=== PATIENT | female | born 1940 | race Caucasian/White ===

== ENCOUNTER 2016-11-17 22:38 | Emergency (ER) | payer OTHER, MEDICARE ==
[~2016-11-17] VITALS: Ht 154.9 cm; Wt 66.2 kg
--- NOTE | ~2016-11-17 | EKG ---
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 : 1940 Requested By: Angel Beckford Order Number: [id number] MD: Triston Brandon Measurements Intervals [place] Rate: 80 P: 73 AR: 197 QRS: -37 QRSD: 110 T: 46 QT: 410 QTc: 473 Interpretive Statements Sinus rhythm Incomplete left bundle branch block Anterior Q waves, possibly due to ILBBB Compared to ECG 04/14/2016 07:42:48 Left bundle-branch block now present Q waves now present Poor R-wave progression no longer present Intraventricular conduction delay no longer present Electronically Signed On 11-18-2016 14:05:02 CDT by Triston Brandon [email or web address] <ELECTRONICALLY SIGNED> By: Triston Brandon MD 11/18/16 1405 40 40 Triston Brandon MD /EPI
[~2016-11-17 22:38] MED LIST: ARTHRITIS PAIN650 M3 PO; ASPIRIN EC325 M1 PO; ATORVASTATIN CA40 MG PO; CALCIUM; ELIQUIS5 MG PO; IMDUR 30 MG TAB30 M1 PO; K-DUR 20 MEQ T20 MEQ PO; LASIX 40 MG TAB40 MG PO; NORVASC10 MG PO; PRILOSEC 20 MG20 MG PO; SIMVASTATIN20 MG PO; SORINE 80 MG TA80 M1 PO; TOPROL XL100 MG PO; VITAMIN D31000 UNI2 PO
[2016-11-17] MEDS ORDERED: ZARAH TABLET1 EACH PO (22:50)
[2016-11-17 23:01] LABS: HEMATOCRIT 33.5 % (37.0-47.0); HEMOGLOBIN 11.4 gm/dL (12.0-15.0); MCH 31.1 pg (26.0-34.0); MCHC 34.1 g/dL (28.0-37.0); MCV 91.3 fL (80.0-100.0); PLATELET COUNT 310 thou/uL (150-400); RBC 3.67 mil/uL (4.20-5.00); RDW 12.5 % (10.5-14.5); WBC 8.3 thou/uL (4.0-11.0)
[2016-11-17 23:07] LABS: MANUAL DIFF YES
[2016-11-17 23:12] LABS: ANION GAP 7 mmol/L (7-16); BUN 19 mg/dL (7-18); CALCIUM 9.8 mg/dL (8.5-10.1); CHLORIDE 100 mmol/L (98-107); CO2 29 mmol/L (21-32); CREATININE 1.3 mg/dL (0.6-1.0); GLUCOSE 122 mg/dL (74-106); POTASSIUM 4.1 mmol/L (3.5-5.1); SODIUM 136 mmol/L (136-145)
[2016-11-17 23:15] LABS: APTT 31.5 Seconds (24.5-32.8); INR 1.1; PROTIME 11.3 Seconds (9.3-11.4)
[2016-11-17 23:21] LABS: ALBUMIN 3.7 g/dL (3.4-5.0); ALKALINE PHOSPHATASE 108 U/L (46-116); MAGNESIUM 2.3 mg/dL (1.8-2.4); SGOT 30 U/L (15-37); SGPT 17 U/L (30-65); TOTAL BILIRUBIN 0.3 mg/dL (<0.1-1.0); TOTAL PROTEIN 7.4 g/dL (6.4-8.2); TROPONIN-I < 0.04 ng/mL (<0.04-0.07)
[2016-11-17 23:37] LABS: PLATELET ESTIMATE NORMAL; TOTAL CELL COUNT 100
== END 2016-11-17 23:56 | disposition home or self-care (01) ==
LOC: ER 22:38
PROVIDERS: Emergency Medicine
DX: I47.1 Supraventricular tachycardia (principal); J84.10 Pulmonary fibrosis, unspecified; I10 Essential (primary) hypertension; I48.91 Unspecified atrial fibrillation; Z95.5 Presence of coronary angioplasty implant and graft; Z95.4 Presence of other heart-valve replacement; Z98.890 Other specified postprocedural states; Z87.891 Personal history of nicotine dependence; Z88.1 Allergy status to other antibiotic agents; Z88.2 Allergy status to sulfonamides; Z88.6 Allergy status to analgesic agent

== ENCOUNTER 2017-06-14 19:50 | Emergency (ER) | payer OTHER, MEDICARE ==
[~2017-06-14] VITALS: Ht 152.4 cm; Wt 60.3 kg
--- NOTE | ~2017-06-14 | EKG ---
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
[~2017-06-14 19:50] MED LIST changes: +ZARAH TABLET1 EACH PO
[2017-06-14] MEDS ORDERED: XARELTO20 MG PO (20:07)
[2017-06-14] MEDS ORDERED: ASPIR 8181 MG PO (20:07)
[2017-06-14 20:17] LABS: ABSOLUTE NEUTROPHILS 3.9 thou/uL (1.4-8.2); BASOPHILS 1.3 % (0.0-2.0); EOSINOPHILS 4.4 % (0.0-3.0); HEMATOCRIT 34.2 % (37.0-47.0); HEMOGLOBIN 11.5 gm/dL (12.0-15.0); LYMPHOCYTES 27.9 % (24.0-44.0); MCH 31.2 pg (26.0-34.0); MCHC 33.6 g/dL (28.0-37.0); MCV 92.8 fL (80.0-100.0); PLATELET COUNT 251 thou/uL (150-400); POLYS 54.4 % (36.0-66.0); RBC 3.69 mil/uL (4.20-5.00); RDW 13.6 % (10.5-14.5); WBC 7.1 thou/uL (4.0-11.0)
[2017-06-14] MEDS ORDERED: SORINE 80 MG TA80 M1 PO (20:18)
[2017-06-14 20:25] LABS: CALCIUM 9.3 mg/dL (8.5-10.1); CREATININE 1.2 mg/dL (0.6-1.0); MAGNESIUM 2.2 mg/dL (1.8-2.4); POTASSIUM 4.4 mmol/L (3.5-5.1)
[2017-06-14 20:29] LABS: URINE BILIRUBIN NEGATIVE (Negative); URINE BLOOD NEGATIVE (Negative); URINE CLARITY CLEAR; URINE COLOR YELLOW; URINE GLUCOSE-RANDOM* NEGATIVE (Negative); URINE KETONES NEGATIVE (Negative); URINE NITRITE-REFLEX NEGATIVE (Negative); URINE PROTEIN (DIPSTICK) NEGATIVE (Negative); URINE UROBILINOGEN 0.2 E.U./dl (0.2-1.0)
[2017-06-14 20:30] LABS: URINE LEUKOCYTES-REFLEX 2+ (Negative)
[2017-06-14 20:32] LABS: BACTERIA-REFLEX 1-9 Few /HPF (None Seen); CASTS None Seen /LPF (None Seen); SQUAMOUS 0-3 Few /LPF (0-3); URINE RBC None Seen /HPF (0-2); URINE WBC-REFLEX 0-5 Rare /HPF (0-5)
[2017-06-14 20:33] LABS: CRYSTALS None Seen /LPF (None Seen)
[2017-06-14] MEDS ORDERED: KEFLEX500 M1 PO (21:57)
== END 2017-06-14 22:29 | disposition home or self-care (01) ==
LOC: ER 19:50
PROVIDERS: Emergency Medicine
DX: I48.91 Unspecified atrial fibrillation (principal); N39.0 Urinary tract infection, site not specified; I10 Essential (primary) hypertension; Z88.2 Allergy status to sulfonamides; Z88.1 Allergy status to other antibiotic agents; Z87.891 Personal history of nicotine dependence